=== PATIENT | male | born 1980 | race Caucasian/White ===

== ENCOUNTER 2017-07-09 16:56 | Observation (INO) ==
--- NOTE | 2017-07-09 17:24 | Emergency Department Note ---
Disposition Clinical Impression: Left knee pain Qualifiers: Chronicity: acute Qualified Code(s): M25.562 - Pain in left knee Septic arthritis of knee, left Qualifiers: Septic arthritis organism: due to unspecified organism Qualified Code(s): M00.9 - Pyogenic arthritis, unspecified Disposition: Still a Patient Condition: Good Referrals: Ministerio Donaldson MD [Primary Care Provider] - Forms: ED Satisfaction Letter Extremity Problem HPI - General Chief complaint: ED Extremity Problem,Nontraumatic Stated complaint: Left knee pain Time Seen by Provider: 07/09/17 17:09 Source: patient Limitations: no limitations Nursing Notes Reviewed: Yes Vital Signs Reviewed: Yes - History of Present Illness HPI Narrative: 36-year-old male history of hypertension diabetes and gout presents to the ED with atraumatic left knee pain. Symptoms started yesterday worse today. Increased redness and swelling as well as pain. Denies any pain anywhere else such as the back ahead where the feet. Denies any fevers. He denies any injury to the leg. Reports a history of gout that has affected his toes, knee, elbow. He has ever experienced pain like this before. Denies any recent surgery to the knee. He is expected to get arthroscopy to his right knee. He has not taken anything for the pain. Denies any recent alcohol use. At this time workup for septic knee including bloodwork, ESR and x-ray. Patient is afebrile but it appears uncomfortable in some distress. He is tachycardic 130. Pt Subjective Complaint: extremity pain, extremity swelling Pain Scale: 10 - Related Data Home Medications Medication Instructions Recorded Confirmed Acetaminophen [Tylenol] 325 mg PO Q6HR PRN 03/24/15 06/02/17 Atorvastatin [Lipitor] 10 mg PO HS 03/24/15 06/02/17 Ergocalciferol (VITAMIN D2) 50,000 unit PO MO 03/24/15 06/02/17 [Drisdol (50,000 Unit)] Previous Rx's Medication Instructions Recorded Insulin Glargine [Lantus] 8 unit SQ QAM 30 Days mls 01/31/16 Lisinopril [Zestril] 10 mg PO DAILY 30 Days 01/31/16 Ibuprofen [Motrin] 600 mg PO Q8HR PRN #20 tab 04/29/16 Clindamycin [Cleocin] 150 mg PO Q6HR #7 capsule 06/02/17 HYDROcodone/Acet 5/325 mg [Delight 1 tab PO Q6H PRN #14 tab 06/02/17 5-325 mg] Allergies Allergy/AdvReac Type Severity Reaction Status Date / Time aspirin Allergy See Verified 06/02/17 07:27 Comments ibuprofen Allergy due to Verified 05/23/17 13:16 kidneys naproxen [From Aleve] Allergy See Verified 05/23/17 13:16 Comments All systems ED: reviewed and negative except as stated. Review of Systems: As Per HPI Constitutional: Denies: fever, chills ENT ED: Denies: congestion Cardiovascular: Denies: chest pain, dyspnea on exertion Respiratory: Denies: cough, dyspnea Gastrointestinal: Denies: abdominal pain, nausea, vomiting Musculoskeletal: Reports: arthralgia. Denies: back pain, neck pain Neurological: Denies: headache Past Medical History - Past Medical History Attestation: Yes The following information was validated with the patient. Source: patient Medical history: Reports: diabetes, hypertension, osteoporosis, renal disease, other Surgical history: Reports: cholecystectomy, other Psychiatric history: Reports: ADHD - Social History Smoking Status: Never smoker Smokeless Tobacco Status: No Alcohol use: Reports: none Drug use: Reports: none Physical Exam - General Limitations: no limitations General appearance: alert, in no apparent distress - Head Head exam: atraumatic, normocephalic, normal inspection - Chest Chest inspection: Present: normal inspection, symmetric chest wall rise - Respiratory Respiratory exam: Present: normal lung sounds bilaterally - Cardiovascular Cardiovascular exam: Present: regular rate, normal rhythm, normal heart sounds - Abdominal Exam Abdominal exam: Present: soft, Non-Tender. Absent: tenderness, distention, guarding, rebound, rigidity - Expanded Lower Extremity Exam Hip/Pelvis exam: Present: normal inspection, full ROM, pelvis stable. Absent: external rotation, internal rotation, shortening Upper leg exam: Present: normal inspection, full ROM. Absent: tenderness, deformity Knee exam: Present: normal inspection, full ROM, tenderness (Left knee, is Osvaldo the lateral aspect), swelling (Left knee), erythema, effusion, pain with valgus , pain with varus Lower leg exam: Present: normal inspection, full ROM Ankle exam: Present: normal inspection, full ROM Foot/toe exam: Present: normal inspection, full ROM Neurovascular/Tendon exam: Present: normal capillary refill. Absent: pulse deficit, motor deficit, sensory deficit, tendon deficit - Neurological Exam Neurological exam: Present: alert, oriented X3 - Psychiatric Psychiatric exam: Present: normal affect, normal mood - Skin Skin exam: Present: warm, dry, intact, normal color. Absent: rash, cyanosis, diaphoresis Course Course Narrative: 36-year-old male history of atraumatic left knee swelling and pain. It is warm to the touch. Patients afebrile. Appears uncomfortable. Concern for septic knee. X-ray did not show fracture. Synovial fluid analysis pending. - Reevaluation(s) Reevaluation #1: Knee joint aspiration performed to the left knee with the lateral aspect introduction. Patient was cleaned with chloro prep. 1 mL of lidocaine for anesthesia. 21gauge needle introduced with 10 mL of yellow tint fluid. The sample was labeled and walked down to laboratory for analysis. A cell count, crystals, Gram stain and culture ordered. Time: 18:04 Reevaluation #2: At 1900 during shift change the fluid analysis is still pending. He has a leukocytosis with elevated ESR. Uric acid is elevated as well. Suspect this is likely more septic knee. He will be empirically treated with vancomycin and ceftriaxone. Blood cultures and lactate ordered. Patient's heart rate has improved with IV fluids. He will be signed up to nighttime physicians Dr. Wood and Dr. Vasquez pending fluid analysis and possible admission after speaking with orthopedic surgeon. Time: 19:00 Vital Signs Temperature 97.9 F 07/09/17 17:01 Pulse Rate 125 07/09/17 17:01 Respiratory Rate 18 07/09/17 17:01 Blood Pressure 132/84 07/09/17 17:01 O2 Sat by Pulse Oximetry 99 07/09/17 17:01 Temperature 97.9 F 07/09/17 17:01 Pulse Rate 102 07/09/17 18:30 Respiratory Rate 18 07/09/17 18:30 Blood Pressure 125/77 07/09/17 18:30 O2 Sat by Pulse Oximetry 97 07/09/17 18:30 Oxygen Delivery Oxygen Delivery Room Air Procedures - Joint Aspiration/Injection Joint Aspiration/Injection 1 Consent Obtained: verbal consent Time Out Performed: Yes Side of body: left Joint Aspirated: knee Ultrasound Guidance: No Skin Prep: Chlorhexidine Local Anesthetic: lidocaine 1% Amount of anesthesia used (mL): 1 Needle Size Used: 20G Fluid Obtained: turbid Total Fluid Obtained (mls): 10 Patient Tolerated Procedure: well Complications: none Extremity Problem, Nontraumati - MDM Narrative Medical decision making narrative: Patient was discussed with my attending physician who agrees with ED management and final disposition. They independently evaluated the patient. Please refer to their attestation to this encounter for additional information. This note was generated by [employer] voice recognition software and as a result grammatical or spelling errors may occur using this program. - Medical Records Medical records reviewed: Yes I reviewed the patient's medical records. - Lab Data Lab results reviewed: Yes I reviewed the patient's lab results. Result diagrams: 07/09/17 17:46 07/09/17 17:46 Lab Results 07/09/17 07/09/17 07/09/17 Range/Units 17:46 17:46 17:46 WBC 16.5 H (4.3-11.1) K/mcL RBC 5.08 (4.19-5.50) M/mcL Hgb 15.0 (12.9-16.9) g/dL Hct 42.9 (37.5-50.1) % MCV 84.4 (83.0-100.0) fL MCH 29.5 (28.0-33.3) pg MCHC 35.0 (31.6-35.5) g/dL RDW 12.8 (11.5-14.5) % Plt Count 230 (140-400) K/mcL MPV 11.1 (9.4-12.4) fL Immature Gran % 0.5 (0-4) % Seg Neutrophils % 80.3 % Lymphocytes % 10.2 % Monocytes % 8.6 % Eosinophils % 0.2 % Basophils % 0.2 % Neutrophils # 13.2 H (1.6-8.9) K/mcL Lymphocytes # 1.7 (0.6-4.6) K/mcL Monocytes # 1.4 H (0.0-1.3) K/mcL Eosinophils # 0.0 (0.0-0.6) K/mcL Basophils # 0.0 (0.0-0.2) K/mcL ESR 46 H (0-10) mm/hr Sodium 134 L (136-145) mEq/L Potassium 3.8 (3.5-5.1) mEq/L Chloride 101 (98-107) mEq/L Carbon Dioxide 23 (23-29) mEq/L BUN 9 (6-20) mg/dL Creatinine 0.87 (0.70-1.30) mg/dL Est GFR ( Amer) > 60 (> 60) Est GFR (Non-Af Amer) > 60 (> 60) BUN/Creatinine Ratio 10 (6-26) Glucose 229 H (70-105) mg/dL Calculated Osmolality 284 (280-300) Uric Acid 7.9 H (2.3-7.6) mg/dL Calcium 9.8 (8.6-10.3) mg/dL - Radiology Data Radiology results reviewed: Yes I reviewed the patient's radiology results. Knee X-Ray 07/09/17 17:23 IMPRESSION: Soft tissue swelling with moderate to large sized patellofemoral effusion. These findings are nonspecific. Infectious, inflammatory and posttraumatic causes are considered. Clinical correlation recommended. D/ / Chuy Guevara MD / Chuy Guevara MD Interpreting Provider: Chuy Guevara MD S.B.A.R. - S.B.A.RAlicia Situation: Demographics, MOA Background: Presenting Complaint, Relevant PMH, Meds, & Allergies Assessment: Vital Signs, Course and respsone to treatment, Exam Concerns, Patient/Family Expectation, Pertinant Lab Results, Outstanding Labs Recommendation: Barrier(s) to disposition, Recommendation based on pending studies, treatments, or consults S.B.A.RAlicia Report Given to: Dr. Wood and Christina SAliciaB.AGabriele Repor Time: 19:05
[2017-07-09] MEDS ORDERED: Acetaminophen 325 MG TABLET PO ONE (17:25)
--- NOTE | 2017-07-09 17:30 | Emergency Department Note ---
START Narrative - START START: I examined this patient and my medical decision-making was reviewed with the Resident Physician. I agree with the documented findings, disposition and treatment plan as described except to the extent set forth below. 36-year-old male presents emergency room for left knee pain and swelling. States this got more swollen over the past day or so. So she with redness. Increased swelling. Denies fevers. We will need to workup for a possible septic joint. Lab work, plain films, we will need to do a knee aspiration.
[2017-07-09] MEDS ORDERED: 0.9 % Sodium Chloride 1,000 ML IVC ONE (17:34)
[2017-07-09] MEDS ORDERED: Lidocaine 1% 20 ML MDV INFILT ONE (17:41)
[2017-07-09 17:58] LABS: Basophils % 0.2 %; Eosinophils % 0.2 %; Hematocrit 42.9 % (37.5-50.1); Immature Granulocytes % 0.5 % (0-4); Lymphocytes # 1.7 K/mcL (0.6-4.6); Lymphocytes % 10.2 %; Mean Corpuscular Hemoglobin 29.5 pg (28.0-33.3); Mean Corpuscular Volume 84.4 fL (83.0-100.0); Mean Platelet Volume 11.1 fL (9.4-12.4); Monocytes # 1.4 K/mcL (0.0-1.3); Monocytes % 8.6 %; Neutrophils # 13.2 K/mcL (1.6-8.9); Platelet Count 230 K/mcL (140-400); Red Blood Count 5.08 M/mcL (4.19-5.50); Red Cell Distribution Width 12.8 % (11.5-14.5); Segmented Neutrophils % 80.3 %
[2017-07-09 18:10] LABS: Source,Synovial Fluid LFT KNEE
[2017-07-09 18:15] LABS: BUN/Creatinine Ratio 10 (6-26); Blood Urea Nitrogen 9 mg/dL (6-20); Calcium 9.8 mg/dL (8.6-10.3); Carbon Dioxide 23 mEq/L (23-29); Chloride 101 mEq/L (98-107); Glucose 229 mg/dL (70-105); Osmolality,Calculated 284 (280-300); Potassium 3.8 mEq/L (3.5-5.1); Sodium 134 mEq/L (136-145); Uric Acid 7.9 mg/dL (2.3-7.6); eGFR For African Americans > 60 (> 60); eGFR For Non-African Americans > 60 (> 60)
[2017-07-09] MEDS ORDERED: Vancomycin 1,500 MG in D5% in Water 250 ML IVPB ONE (19:00)
--- NOTE | 2017-07-09 19:05 | Emergency Department Note ---
Disposition Clinical Impression: Left knee pain Qualifiers: Chronicity: acute Qualified Code(s): M25.562 - Pain in left knee Septic arthritis of knee, left Qualifiers: Septic arthritis organism: due to unspecified organism Qualified Code(s): M00.9 - Pyogenic arthritis, unspecified Disposition: Admitted As Inpatient Condition: Good Extremity Problem HPI - General Chief complaint: ED Extremity Problem,Nontraumatic Stated complaint: Left knee pain Time Seen by Provider: 07/09/17 17:09 Source: patient Limitations: no limitations - History of Present Illness Pain Scale: 9 - Related Data Home Medications Medication Instructions Recorded Confirmed Acetaminophen [Tylenol] 325 mg PO Q6HR PRN 03/24/15 06/02/17 Atorvastatin [Lipitor] 10 mg PO HS 03/24/15 06/02/17 Ergocalciferol (VITAMIN D2) 50,000 unit PO MO 03/24/15 06/02/17 [Drisdol (50,000 Unit)] Previous Rx's Medication Instructions Recorded Insulin Glargine [Lantus] 8 unit SQ QAM 30 Days mls 01/31/16 Lisinopril [Zestril] 10 mg PO DAILY 30 Days 01/31/16 Ibuprofen [Motrin] 600 mg PO Q8HR PRN #20 tab 04/29/16 Clindamycin [Cleocin] 150 mg PO Q6HR #7 capsule 06/02/17 HYDROcodone/Acet 5/325 mg [Chili 1 tab PO Q6H PRN #14 tab 06/02/17 5-325 mg] Allergies Allergy/AdvReac Type Severity Reaction Status Date / Time aspirin Allergy See Verified 06/02/17 07:27 Comments ibuprofen Allergy due to Verified 05/23/17 13:16 kidneys naproxen [From Aleve] Allergy See Verified 05/23/17 13:16 Comments Constitutional: Denies: fever, chills ENT ED: Denies: congestion Cardiovascular: Denies: chest pain, dyspnea on exertion Respiratory: Denies: cough, dyspnea Gastrointestinal: Denies: abdominal pain, nausea, vomiting Musculoskeletal: Reports: arthralgia. Denies: back pain, neck pain Neurological: Denies: headache Past Medical History - Past Medical History Medical history: Reports: diabetes, hypertension, osteoporosis, renal disease, other Surgical history: Reports: cholecystectomy, other Psychiatric history: Reports: ADHD - Social History Smoking Status: Never smoker Smokeless Tobacco Status: No Alcohol use: Reports: none Drug use: Reports: none Physical Exam - General Limitations: no limitations General appearance: alert, in no apparent distress Course Course Narrative: Patient signed out from dayshift team pending cultures and analysis of knee fluid aspirate. In brief he is a 36-year-old male with a history of diabetes and gout who presented due to left knee pain, redness and swelling for 1 day duration. Denies any trauma. Reports he has had gout in the past but this is nothing like his usual flare. He is not currently on medications for gout. No constitutional symptoms at home. Patient does have a warm swollen left knee here. X-ray demonstrates an effusion. Patient underwent aspiration of the joint prior to my arrival. He is noted to have a leukocytosis of 16.5. Slightly elevated ESR. Uric acid is just slightly elevated 0.3 higher than normal. We will wait analysis of his aspirate. Patient given vancomycin. - Reevaluation(s) Reevaluation #1: Discussed finding of knee fluid as well as orthopedic recommendations with the patient. He is agreeable with being admitted to the hospital. - Consultations Consultation #1: I spoke with the on-call orthopedic surgeon Dr. Krishnan. Discussed the patient's history exam and imaging labs and interventions today. He reports to admit to the hospitalist service and he will see the patient in the morning. Vital Signs Temperature 97.9 F 07/09/17 17:01 Pulse Rate 125 07/09/17 17:01 Respiratory Rate 18 07/09/17 17:01 Blood Pressure 132/84 07/09/17 17:01 O2 Sat by Pulse Oximetry 99 07/09/17 17:01 Temperature 97.9 F 07/09/17 17:01 Pulse Rate 93 07/09/17 21:30 Respiratory Rate 18 07/09/17 18:30 Blood Pressure 115/73 07/09/17 21:30 O2 Sat by Pulse Oximetry 94 07/09/17 21:30 Oxygen Delivery Oxygen Delivery Room Air Extremity Problem, Nontraumati - MDM Narrative Medical decision making narrative: 36-year-old male presents to the ER due to redness and swelling of his left knee for 1 day in nature. Atraumatic. History of diabetes. Noted to be tachycardic upon arrival. He has a white count of 16.5. Knee aspiration performed showing greater than 20,000 nucleated cells. Gram stain does not show any bacteria. Case discussed with the on-call orthopedic surgeon. Patient will be admitted to the hospitalist service with orthopedic consultation. Patient received dose of vancomycin while here. - Lab Data Lab results reviewed: Yes I reviewed the patient's lab results. Result diagrams: 07/09/17 17:46 07/09/17 17:46 Lab Results 07/09/17 07/09/17 07/09/17 Range/Units 17:46 17:46 17:46 WBC 16.5 H (4.3-11.1) K/mcL RBC 5.08 (4.19-5.50) M/mcL Hgb 15.0 (12.9-16.9) g/dL Hct 42.9 (37.5-50.1) % MCV 84.4 (83.0-100.0) fL MCH 29.5 (28.0-33.3) pg MCHC 35.0 (31.6-35.5) g/dL RDW 12.8 (11.5-14.5) % Plt Count 230 (140-400) K/mcL MPV 11.1 (9.4-12.4) fL Immature Gran % 0.5 (0-4) % Seg Neutrophils % 80.3 % Lymphocytes % 10.2 % Monocytes % 8.6 % Eosinophils % 0.2 % Basophils % 0.2 % Neutrophils # 13.2 H (1.6-8.9) K/mcL Lymphocytes # 1.7 (0.6-4.6) K/mcL Monocytes # 1.4 H (0.0-1.3) K/mcL Eosinophils # 0.0 (0.0-0.6) K/mcL Basophils # 0.0 (0.0-0.2) K/mcL ESR 46 H (0-10) mm/hr Sodium 134 L (136-145) mEq/L Potassium 3.8 (3.5-5.1) mEq/L Chloride 101 (98-107) mEq/L Carbon Dioxide 23 (23-29) mEq/L BUN 9 (6-20) mg/dL Creatinine 0.87 (0.70-1.30) mg/dL Est GFR ( Amer) > 60 (> 60) Est GFR (Non-Af Amer) > 60 (> 60) BUN/Creatinine Ratio 10 (6-26) Glucose 229 H (70-105) mg/dL Calculated Osmolality 284 (280-300) Lactic Acid (0.5-2.2) mmol/L Uric Acid 7.9 H (2.3-7.6) mg/dL Calcium 9.8 (8.6-10.3) mg/dL Fluid Crystals (None Seen) Synovial Source Synovial Color (Straw) Synovial Appearance (Clear-Hazy) Synovial Volume mL Synovial RBC (0.000 - 0.002) M/mcl Synovial Tot Nuc Cell (0-200) TNC/mcL Synovial Band Neuts Synovial Basophils Synovial Eosinophils Synovial Seg Neuts % % Synovial Lymphocytes % % Synovial Monocytes % % Synovial Other Cells % 07/09/17 07/09/17 07/09/17 Range/Units 18:00 18:09 19:04 WBC (4.3-11.1) K/mcL RBC (4.19-5.50) M/mcL Hgb (12.9-16.9) g/dL Hct (37.5-50.1) % MCV (83.0-100.0) fL MCH (28.0-33.3) pg MCHC (31.6-35.5) g/dL RDW (11.5-14.5) % Plt Count (140-400) K/mcL MPV (9.4-12.4) fL Immature Gran % (0-4) % Seg Neutrophils % % Lymphocytes % % Monocytes % % Eosinophils % % Basophils % % Neutrophils # (1.6-8.9) K/mcL Lymphocytes # (0.6-4.6) K/mcL Monocytes # (0.0-1.3) K/mcL Eosinophils # (0.0-0.6) K/mcL Basophils # (0.0-0.2) K/mcL ESR (0-10) mm/hr Sodium (136-145) mEq/L Potassium (3.5-5.1) mEq/L Chloride (98-107) mEq/L Carbon Dioxide (23-29) mEq/L BUN (6-20) mg/dL Creatinine (0.70-1.30) mg/dL Est GFR ( Amer) (> 60) Est GFR (Non-Af Amer) (> 60) BUN/Creatinine Ratio (6-26) Glucose (70-105) mg/dL Calculated Osmolality (280-300) Lactic Acid 1.3 (0.5-2.2) mmol/L Uric Acid (2.3-7.6) mg/dL Calcium (8.6-10.3) mg/dL Fluid Crystals None Seen (None Seen) Synovial Source LFT KNEE Synovial Color Isha (Straw) Synovial Appearance Cloudy A (Clear-Hazy) Synovial Volume 11.0 mL Synovial RBC 0.008 H (0.000 - 0.002) M/mcl Synovial Tot Nuc Cell 40789 H (0-200) TNC/mcL Synovial Band Neuts Test Not Performed Synovial Basophils Test Not Performed Synovial Eosinophils Test Not Performed Synovial Seg Neuts % 96.0 % Synovial Lymphocytes % 1.0 % Synovial Monocytes % 3.0 % Synovial Other Cells % Test Not Performed - Radiology Data Radiology results reviewed: Yes I reviewed the patient's radiology results. Knee X-Ray 07/09/17 17:23 IMPRESSION: Soft tissue swelling with moderate to large sized patellofemoral effusion. These findings are nonspecific. Infectious, inflammatory and posttraumatic causes are considered. Clinical correlation recommended. D/ / Chuy Guevara MD / Chuy Guevara MD Interpreting Provider: Chuy Guevara MD S.Karen.Talita - SamuelAGabriele Situation: Demographics, MOA Background: Presenting Complaint, Relevant PMH, Meds, & Allergies Assessment: Course and respsone to treatment, Exam Concerns, Patient/Family Expectation, Pertinant Lab Results Recommendation: Barrier(s) to disposition, Recommendation based on pending studies, treatments, or consults S.B.A.R. Report Given to: Dr. Will BakerAGabriele Repor Time: 21:14 Attestation Statement - Attestation Attestation: I, Leon Vasquez MD, personally evaluated this patient and discussed their management with the resident physician. I reviewed the resident's note and agree with the documented findings, medical decision making, and plan of care. This patient was signed out at shift change from Dr. Hendrickson and Dr. Lombardo. Please refer to their notes for complete details of the history and physical examination. Patient presented with a septic left knee which started yesterday. At shift change patient is awaiting results of the synovial fluid analysis and then consultation with orthopedics and admission. IV antibiotics have been initiated. On examination patient is a well-developed well-nourished male in no acute distress. He is alert and oriented 3. There is no cyanosis or diaphoresis. Breath sounds are clear and equal bilaterally. Heart regular rate and rhythm. Left knee is swollen and red and hot to touch. Range of motion is limited and he is unable to fully extend the knee with limited flexion. Labs reviewed. Dr. Wood discussed with the orthopedist deboning team leader, Dr. Krishnan, and he recommended IV antibiotics and admission by the hospitalist and he will consult on the patient.
[2017-07-09 20:20] LABS: Appearance,Synovial Fluid Cloudy (Clear-Hazy); Color,Synovial Fluid Amber (Straw)
[2017-07-09] MEDS ORDERED: *HR* HYDROcodone/Acet 5/325 mg TABLET PO PRN (21:57)
[2017-07-09] MEDS ORDERED: Naloxone 0.4 MG/ML INJ IVP PRN (21:57)
[2017-07-09] MEDS ORDERED: Acetaminophen 325 MG TABLET PO PRN (21:57)
[2017-07-09] MEDS ORDERED: D5% in Water 1,000 ML IVC PRN (21:59)
[2017-07-09] MEDS ORDERED: Dextrose Gel 15 GM PO PRN ×2 (21:59)
[2017-07-09] MEDS ORDERED: *HR* Dextrose 50 % in Water (Syg) 50 ML SYRINGE IVP PRN (21:59)
[2017-07-09] MEDS ORDERED: Vancomycin 1,750 MG in D5% in Water 250 ML IVPB SCH (22:00)
--- NOTE | 2017-07-09 22:06 | Internal Med History&Physical ---
Date of Encounter: 07/09/17 Time of Encounter: 21:00 Assessment and Plan (1) Sepsis Current visit: Yes Status: Acute Patient did meet sepsis criteria with leukocytosis and tachycardia. - Early stage goal directed fluid resuscitation started up from ER. We will continue IV fluid. - Initial lactate level 1.3 - Vancomycin IV started. - We will follow-up blood culture and synovial fluid culture results. Patient is at high risk because he is on vancomycin, need close monitoring Qualifiers: Sepsis type: methicillin resistant Staphylococcus aureus Qualified Code(s) : A41.02 - Sepsis due to Methicillin resistant Staphylococcus aureus (2) Diabetes Current visit: No Status: Chronic Place patient on basal and a sliding scale insulin coverage. Closely monitor glucose level. 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 Suspect septic arthritis but WBC < 50,000. Waiting for culture results. Orthopedic consult informed and the recommend vancomycin. Will continue iv vancomycin treatment. Qualifiers: Septic arthritis organism: staphylococcal Qualified Code(s): M00.062 - Staphylococcal arthritis, left knee Internal Medicine - H&P: HPI Chief complaint: Left knee pain Admitted From: Home Plans for Post Hospital Care: Home History of present illness: Mr. Hassan is a 36 year old male with history of diabetes to present to ER for left knee pain and swelling. Patient said symptoms started from yesterday morning. Patient denies knee injury. Patient has no fever. He has mild nausea but no vomiting. Patient denies diarrhea or urination symptoms. Patient said the pain makes him difficulty walking. Patient denies history of gout. In the emergency room, arthrocentesis has been done. Fluid cell count shows WBC 40501. Orthopedic doctor was counseled by ER, recommend IV vancomycin and orthopedic will see pt in the a.m. Past Med Surg Social Fam HX - Past Medical History Medical history: diabetes, hypertension, osteoporosis, renal disease, other Psychiatric history: ADHD - Past Surgical History Surgical History: cholecystectomy, other - Social History Smoking Status: Never smoker Smokeless Tobacco Status: No Alcohol use: none Drug use: none - Family History Mother Living Status: Still Living Hx Family Respiratory Disorders: Yes (left partial lobectomy) Hx Family Endocrine Disorder: Yes (dm type 2) Internal Medicine - H&P: Meds Acetaminophen [Tylenol] 325 mg PO Q6HR PRN 03/24/15 [History] Atorvastatin [Lipitor] 10 mg PO HS 03/24/15 [History] Ergocalciferol (VITAMIN D2) [Drisdol (50,000 Unit)] 50,000 unit PO MO 03/24/15 [ History] Insulin Glargine [Lantus] 8 unit SQ QAM 30 Days mls 01/31/16 [Rx] Lisinopril [Zestril] 10 mg PO DAILY 30 Days 01/31/16 [Rx] Ibuprofen [Motrin] 600 mg PO Q8HR PRN #20 tab 04/29/16 [Rx] Clindamycin [Cleocin] 150 mg PO Q6HR #7 capsule 06/02/17 [Rx] HYDROcodone/Acet 5/325 mg [[place] 5-325 mg] 1 tab PO Q6H PRN #14 tab 06/02/17 [Rx ] 3 Allergy/AdvReac Type Severity Reaction Status Date / Time aspirin Allergy See Verified 06/02/17 07:27 Comments ibuprofen Allergy due to Verified 05/23/17 13:16 kidneys naproxen [From Aleve] Allergy See Verified 05/23/17 13:16 Comments All Systems PM: A 10-system review of systems was performed and is negative for pertinent findings except as documented above in the HPI. - Constitutional Vitals: Temp Pulse Resp BP Pulse Ox 97.9 F 93 18 115/73 94 07/09/17 17:01 07/09/17 21:30 07/09/17 18:30 07/09/17 21:30 07/09/17 21:30 General appearance: Present: A&O X 3, no acute distress, answers questions appropriately - Head Head exam: Present: atraumatic, normocephalic - Eye Eye exam: Present: PERRL, conjuntiva pink, sclera anicteric Pupils: Present: PERRL - Neck Neck exam general surgery: Present: supple, trachea midline. Absent: lymphadenopathy - Respiratory Respiratory exam: Present: CTAB. Absent: accessory muscle use, rales, rhonchi, wheezes - Cardiovascular Cardiovascular exam: Present: RRR, +S1, +S2. Absent: diastolic murmur, gallop, rubs, systolic murmur - GI/Abdominal GI/Abdominal exam: Present: normal bowel sounds, soft, no peritoneal signs. Absent: distended, tenderness - Extremities Exam Extremities exam: Present: warm, radial pulses palpable and symmetrical. Absent : calf tenderness, cyanotic, pedal edema Additional comments: Left knee tenderness, warmth with skin redness. ROM limited due to pain. - Neurological Exam Neurological exam: Present: CN II-XII intact, oriented X3, no focal deficits. Absent: pronater drift, facial droop, speech deficit - Skin Skin exam: Present: dry, intact Internal Med - H&P Results - Labs CBC & Chem 7: 07/09/17 17:46 07/09/17 17:46
[2017-07-09] MEDS: 0.9 % Sodium Chloride 1,000 ML IVC SCH (22:43)
[2017-07-10 01:25] LABS: Basophils % 0.4 %; Eosinophils # 0.2 K/mcL (0.0-0.6); Eosinophils % 1.5 %; Immature Granulocytes % 0.4 % (0-4); Lymphocytes # 2.5 K/mcL (0.6-4.6); Lymphocytes % 22.9 %; Mean Corpuscular HGB Conc 34.3 g/dL (31.6-35.5); Mean Corpuscular Hemoglobin 29.1 pg (28.0-33.3); Mean Corpuscular Volume 84.7 fL (83.0-100.0); Mean Platelet Volume 10.9 fL (9.4-12.4); Monocytes # 1.4 K/mcL (0.0-1.3); Neutrophils # 6.9 K/mcL (1.6-8.9); Platelet Count 190 K/mcL (140-400); Red Blood Count 4.37 M/mcL (4.19-5.50); Red Cell Distribution Width 12.8 % (11.5-14.5); Segmented Neutrophils % 61.8 %
[2017-07-10 01:42] LABS: BUN/Creatinine Ratio 9 (6-26); Blood Urea Nitrogen 8 mg/dL (6-20); Calcium 8.8 mg/dL (8.6-10.3); Carbon Dioxide 26 mEq/L (23-29); Chloride 103 mEq/L (98-107); Glucose 213 mg/dL (70-105); Osmolality,Calculated 287 (280-300); Potassium 3.6 mEq/L (3.5-5.1); Sodium 136 mEq/L (136-145); eGFR For African Americans > 60 (> 60); eGFR For Non-African Americans > 60 (> 60)
[2017-07-10 02:19] LABS: Hemoglobin 12.7 g/dL (12.9-16.9)
[2017-07-10] MEDS ORDERED: Insulin DETEMIR 100 UNIT/ML X5UNITS SQ SCH (09:00)
[2017-07-10] MEDS: Insulin LISPRO 300 UNITS/3 ML VIAL SQ SCH ×4 (10:17→21:04)
[2017-07-10] MEDS: 0.9 % Sodium Chloride 1,000 ML IVC SCH (10:20)
--- NOTE | 2017-07-10 10:55 | Internal Med Progress Note ---
Date of Encounter: 07/10/17 Time of Encounter: 08:00 - Assessment and plan (1) Left knee pain Current Visit: Yes Status: Acute Assessment and plan: Orthopedic is following. From what I understand as they believe that this is mostly gout. I will start Indocin. Continue with IV vancomycin for now. Follow up on the fluid culture from the knee. Patient has had no fever. Continue with IV fluids. Continue with pain control. Qualifiers: Chronicity: acute Qualified Code(s): M25.562 - Pain in left knee (2) Diabetes Current Visit: No Status: Acute Assessment and plan: Continue with his home Levemir 8 units daily. Continue insulin sliding scale. Continue with Accu-Cheks. Qualifiers: Diabetes mellitus type: type 2 Diabetes mellitus complication status: without complication Diabetes mellitus vermin exterminator insulin use: with chcf use Qualified Code(s): E11.9 - Type 2 diabetes mellitus without complications ; Z79.4 - local intermodal truck driver (current) use of insulin; Z79.4 - local intermodal truck driver (current) use of insulin; Z79.4 - custodial (current) use of insulin; Z79.4 - custodial ( current) use of insulin (3) HTN (hypertension) Current Visit: No Status: Chronic Assessment and plan: Hold lisinopril. Blood pressures on the lower side. Continue with IV fluids. Qualifiers: Hypertension type: essential hypertension Qualified Code(s): I10 - Essential (primary) hypertension (4) DVT prophylaxis Current Visit: No Status: Acute Assessment and plan: Heparin subcutaneous. - Subjective Interval history: Patient was seen and examined. He was admitted with acute left knee pain. He has signs have knee effusion which was tapped. Orthopedics saw the patient. They believe this is gout more so than septic knee. He has been afebrile. - Constitutional Vitals: Temp Pulse Resp BP Pulse Ox 98.4 F 73 17 108/73 98 07/10/17 03:46 07/10/17 03:46 07/10/17 03:46 07/10/17 03:46 07/10/17 10:28 General appearance: Present: A&O X 3, no acute distress, answers questions appropriately Exam: GEN: NAD CVS: RRR. S1, S2, No m/r/g RESP: CTAB ABD: Soft, NT, ND, +BS EXT: Left knee swelling is noted. Some surrounding erythema. Tender to palpation on the lateral side of the left knee. 2+ DP, No rashes NEURO: Nonfocal Internal Medicine: Result - Labs CBC & Chem 7: 07/10/17 01:10 07/10/17 01:10 Labs: Short CBC 07/10/17 Range/Units 01:10 WBC 11.1 (4.3-11.1) K/mcL Hgb 12.7 L D (12.9-16.9) g/dL Hct 37.0 L (37.5-50.1) % Plt Count 190 (140-400) K/mcL Neutrophils # 6.9 (1.6-8.9) K/mcL BMP 07/10/17 01:10 Sodium 136 Potassium 3.6 Chloride 103 Carbon Dioxide 26 BUN 8 Creatinine 0.88 Glucose 213 H Calcium 8.8 Consult Discharge Plan - Plan Referrals: Ministerio Donaldson MD [Primary Care Provider] -
--- NOTE | 2017-07-10 11:06 | Orthopedic Consult Note ---
Date of Encounter: 07/10/17 Time of Encounter: 07:00 History of Present Illness HPI: Mr. Hassan is a 36 year old male with a history of left knee pain and swelling. Patient s/p right knee arthroscopy last month, doing well. Patient seen in ER last night and admitted. Knee aspiration + WBC, - Bacteria. Exam Left Knee 2+ effusion - erythema pain free motion 20 to 90 degrees. Patient with history of gout, recommend start medical management of gout, low suspicion for intra-articular infection. If patient shows improvement ok to discharge we will see him tuesday or tuesday when cultures should be resulted. Past Med Surg Social Fam HX - Past Medical History Medical history: diabetes, hypertension, osteoporosis, renal disease, other Psychiatric history: ADHD - Past Surgical History Surgical History: cholecystectomy, other - Social History Smoking Status: Never smoker Smokeless Tobacco Status: No Alcohol use: none Drug use: none - Family History Mother Adopted: [place]: Gillian Hassan Age: 55 Family Member Ethnicity: Non- Living Status: Still Living Hx Family Respiratory Disorders: Yes (left partial lobectomy) Hx Family Endocrine Disorder: Yes (dm type 2) Father Adopted: [place]: Aiden Hassan Age: 63 Family Member Ethnicity: Non- Living Status: Still Living Hx Family Endocrine Disorder: Yes (Diabetes) Medications and Allergies Acetaminophen [Tylenol] 325 mg PO Q6HR PRN 03/24/15 [History] Atorvastatin [Lipitor] 10 mg PO HS 03/24/15 [History] Ergocalciferol (VITAMIN D2) [Drisdol (50,000 Unit)] 50,000 unit PO MO 03/24/15 [ History] Insulin Glargine [Lantus] 8 unit SQ QAM 30 Days mls 01/31/16 [Rx] Lisinopril [Zestril] 10 mg PO DAILY 30 Days 01/31/16 [Rx] Ibuprofen [Motrin] 600 mg PO Q8HR PRN #20 tab 04/29/16 [Rx] Clindamycin [Cleocin] 150 mg PO Q6HR #7 capsule 06/02/17 [Rx] HYDROcodone/Acet 5/325 mg [[place] 5-325 mg] 1 tab PO Q6H PRN #14 tab 06/02/17 [Rx ] 3 Allergy/AdvReac Type Severity Reaction Status Date / Time aspirin Allergy See Verified 06/02/17 07:27 Comments ibuprofen Allergy due to Verified 05/23/17 13:16 kidneys naproxen [From Aleve] Allergy See Verified 05/23/17 13:16 Comments All Systems Reviewed: A 10-system review of systems was performed and is negative for pertinent findings except as documented above in the HPI. Physical Exam - Constitutional Vitals: Temp Pulse Resp BP Pulse Ox 98.4 F 73 17 108/73 98 07/10/17 03:46 07/10/17 03:46 07/10/17 03:46 07/10/17 03:46 07/10/17 10:28 Results - Labs Result Diagrams: 07/10/17 01:10 07/10/17 01:10 Labs: Abnormal lab results Hgb 12.7 g/dL (12.9-16.9) L D 07/10/17 01:10 Hct 37.0 % (37.5-50.1) L 07/10/17 01:10 Monocytes # 1.4 K/mcL (0.0-1.3) H 07/10/17 01:10 ESR 46 mm/hr (0-10) H 07/09/17 17:46 Glucose 213 mg/dL (70-105) H 07/10/17 01:10 POC Glucose 186 (58-89) H 07/10/17 07:45 Uric Acid 7.9 mg/dL (2.3-7.6) H 07/09/17 17:46 Synovial Appearance Cloudy (Clear-Hazy) A 07/09/17 18:09 Synovial RBC 0.008 M/mcl (0.000-0.002) H 07/09/17 18:09 Synovial Tot Nuc Cell 71053 TNC/mcL (0-200) H 07/09/17 18:09 H & H 07/10/17 Range/Units 01:10 Hgb 12.7 L D (12.9-16.9) g/dL Hct 37.0 L (37.5-50.1) % All other labs normal. Consult Discharge Plan - Plan Referrals: Ministerio Donaldson MD [Primary Care Provider] -
[2017-07-10] MEDS: Indomethacin 25 MG CAPSULE PO SCH ×2 (12:39→17:08)
[2017-07-10] MEDS: *HR* Heparin 5,000 UNIT/ML VIAL SQ SCH ×2 (15:12→17:08)
[2017-07-10] MEDS: Vancomycin 1,500 MG in D5% in Water 250 ML IVPB SCH ×2 (15:12→17:36)
[2017-07-11 01:28] LABS: Basophils # 0.1 K/mcL (0.0-0.2); Basophils % 0.6 %; Eosinophils # 0.2 K/mcL (0.0-0.6); Hematocrit 36.9 % (37.5-50.1); Hemoglobin 12.6 g/dL (12.9-16.9); Immature Granulocytes % 0.6 % (0-4); Lymphocytes % 24.5 %; Mean Corpuscular HGB Conc 34.1 g/dL (31.6-35.5); Mean Corpuscular Hemoglobin 28.9 pg (28.0-33.3); Mean Corpuscular Volume 84.6 fL (83.0-100.0); Mean Platelet Volume 11.2 fL (9.4-12.4); Monocytes # 0.9 K/mcL (0.0-1.3); Monocytes % 11.3 %; Neutrophils # 5.1 K/mcL (1.6-8.9); Platelet Count 178 K/mcL (140-400); Red Blood Count 4.36 M/mcL (4.19-5.50); Red Cell Distribution Width 12.7 % (11.5-14.5)
--- NOTE | 2017-07-11 01:29 | Orthopedics Progress Note ---
Date of Encounter: 07/11/17 Time of Encounter: 01:27 Subjective Interval history: Patient seen this morning less swelling left knee moving better. No cultures resulted yet. Also stable at this point the outcome of cultures. Objective Vital signs: Vital Signs Temp Pulse Resp BP Pulse Ox 07/11/17 00:35 97.9 F 60 16 99/60 98 07/10/17 19:20 99.0 F 63 16 117/67 97 07/10/17 15:22 98.3 F 71 16 109/73 96 07/10/17 11:56 97.7 F 76 18 112/69 97 07/10/17 10:28 98 07/10/17 03:46 98.4 F 73 17 108/73 98 Intake and Output 07/10/17 07/10/17 07/11/17 15:59 23:59 07:59 Intake Total 1600 / 1600 1430 / 1430 Output Total 1100 / 1100 0 / 0 525 / 525 Balance 500 / 500 1430 / 1430 -525 / -525 Intake: IV Fluids 1000 / 1000 250 / 250 0.9 % Sodium Chloride 1,000 ML 1000 / 1000 @ 120 mls/hr IVC .Q8H20M QIANA Rx #:[id number] Vancocin 1,500 MG In Dextrose 5 250 / 250 % 250 ML @ 166.67 mls/hr IVPB Q12H QIANA Rx#:[id number] Oral 600 / 600 1180 / 1180 Output: Urine 1100 / 1100 0 / 0 525 / 525 Other: Meal Lunch Dinner Percent of Meal Consumed 100% 100% Blood Glucose* 242 239 - Labs CBC & BMP: 07/10/17 01:10 07/10/17 01:10 Labs: Abnormal lab results Hgb 12.7 g/dL (12.9-16.9) L D 07/10/17 01:10 Hct 37.0 % (37.5-50.1) L 07/10/17 01:10 Monocytes # 1.4 K/mcL (0.0-1.3) H 07/10/17 01:10 ESR 46 mm/hr (0-10) H 07/09/17 17:46 Glucose 213 mg/dL (70-105) H 07/10/17 01:10 POC Glucose 239 (58-89) H 07/10/17 20:17 Uric Acid 7.9 mg/dL (2.3-7.6) H 07/09/17 17:46 Synovial Appearance Cloudy (Clear-Hazy) A 07/09/17 18:09 Synovial RBC 0.008 M/mcl (0.000-0.002) H 07/09/17 18:09 Synovial Tot Nuc Cell 16107 TNC/mcL (0-200) H 07/09/17 18:09 Consult Discharge Plan - Plan Referrals: Ministerio Donaldson MD [Primary Care Provider] -
[2017-07-11 01:58] LABS: BUN/Creatinine Ratio 14 (6-26); Blood Urea Nitrogen 13 mg/dL (6-20); Calcium 8.9 mg/dL (8.6-10.3); Carbon Dioxide 25 mEq/L (23-29); Chloride 105 mEq/L (98-107); Glucose 226 mg/dL (70-105); Osmolality,Calculated 287 (280-300); Sodium 135 mEq/L (136-145); eGFR For African Americans > 60 (> 60); eGFR For Non-African Americans > 60 (> 60)
[2017-07-11] MEDS: Vancomycin 1,500 MG in D5% in Water 250 ML IVPB SCH ×2 (06:48→18:23)
[2017-07-11] MEDS: *HR* Heparin 5,000 UNIT/ML VIAL SQ SCH ×2 (06:49→18:23)
[2017-07-11] MEDS: Indomethacin 25 MG CAPSULE PO SCH ×3 (07:44→16:28)
[2017-07-11] MEDS: Insulin LISPRO 300 UNITS/3 ML VIAL SQ SCH ×4 (07:44→21:17)
[2017-07-11] MEDS: Insulin DETEMIR 100 UNIT/ML X5UNITS SQ SCH (08:32)
--- NOTE | 2017-07-11 09:26 | Internal Med Progress Note ---
Date of Encounter: 07/11/17 Time of Encounter: 07:40 - Assessment and plan (1) Left knee pain Current Visit: Yes Status: Acute Assessment and plan: Orthopedic is following. Continue with Indocin. Continue with IV vancomycin for now. Follow up on the fluid culture from the knee. Patient has had no fever. Continue with IV fluids. Continue with pain control. He does not feel comfortable being discharged today and feels he benefits from another day in the hospital. We will keep him here today and we will ask PT to see him tomorrow morning. Possible discharge tomorrow. Qualifiers: Chronicity: acute Qualified Code(s): M25.562 - Pain in left knee (2) Diabetes Current Visit: No Status: Acute Assessment and plan: Increase Levemir to 15 units from 8 units daily. Continue insulin sliding scale. Continue with Accu-Cheks. 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 Blood pressure is again on the lower side. Continue with IV fluids. Qualifiers: Hypertension type: essential hypertension Qualified Code(s): I10 - Essential (primary) hypertension (4) DVT prophylaxis Current Visit: No Status: Acute Assessment and plan: Heparin subcutaneous. - Subjective Interval history: Patient was seen and examined. No acute events. He says his pain is improved. He is able to bend his knee more than he did yesterday. He has been afebrile. - Constitutional Vitals: Temp Pulse Resp BP Pulse Ox 97.9 F 68 16 107/76 99 07/11/17 06:34 07/11/17 06:34 07/11/17 06:34 07/11/17 06:34 07/11/17 06:34 General appearance: Present: A&O X 3, no acute distress, answers questions appropriately Exam: GEN: NAD CVS: RRR. S1, S2, No m/r/g RESP: CTAB ABD: Soft, NT, ND, +BS EXT: Left knee swelling is noted. Some surrounding erythema. He has some more range of motion compared to yesterday. He is able to flex the knee to about 45 degrees. Tender to palpation on the lateral side of the left knee. 2+ DP, No rashes NEURO: Nonfocal Internal Medicine: Result - Labs CBC & Chem 7: 07/11/17 01:04 07/11/17 01:04 Labs: Short CBC 07/11/17 Range/Units 01:04 WBC 8.3 (4.3-11.1) K/mcL Hgb 12.6 L (12.9-16.9) g/dL Hct 36.9 L (37.5-50.1) % Plt Count 178 (140-400) K/mcL Neutrophils # 5.1 (1.6-8.9) K/mcL BMP 07/11/17 01:04 Sodium 135 L Potassium 4.0 Chloride 105 Carbon Dioxide 25 BUN 13 Creatinine 0.92 Glucose 226 H Calcium 8.9 Consult Discharge Plan - Plan Referrals: Ministerio Donaldson MD [Primary Care Provider] -
[2017-07-12 05:54] LABS: BUN/Creatinine Ratio 14 (6-26); Blood Urea Nitrogen 10 mg/dL (6-20); Calcium 8.8 mg/dL (8.6-10.3); Carbon Dioxide 25 mEq/L (23-29); Chloride 105 mEq/L (98-107); Glucose 217 mg/dL (70-105); Osmolality,Calculated 288 (280-300); Potassium 3.8 mEq/L (3.5-5.1); Sodium 136 mEq/L (136-145); eGFR For African Americans > 60 (> 60); eGFR For Non-African Americans > 60 (> 60)
[2017-07-12] MEDS: *HR* Heparin 5,000 UNIT/ML VIAL SQ SCH (06:10)
[2017-07-12] MEDS ORDERED: Vancomycin 1,250 MG in D5% in Water 250 ML IVPB SCH (07:00)
--- NOTE | 2017-07-12 07:26 | Discharge Summary ---
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 of insulin; Z79.4 - MCC (current) use of insulin; Z79.4 - MCC (current) use of insulin; Z79.4 - oil heaterman ( current) use of insulin (3) HTN (hypertension) Priority: Secondary Status: Chronic Qualifiers: Hypertension type: essential hypertension Qualified Code(s): I10 - Essential (primary) hypertension - Discharge Medications Prescriptions: Indomethacin [Indocin] 50 mg PO TAPER #12 capsule Home Medications: Acetaminophen [Tylenol] 325 mg PO Q6HR PRN 03/24/15 [History] Atorvastatin [Lipitor] 10 mg PO HS 03/24/15 [History] Ergocalciferol (VITAMIN D2) [Drisdol (50,000 Unit)] 50,000 unit PO MO 03/24/15 [ History] Insulin Glargine [Lantus] 8 unit SQ QAM 30 Days mls 01/31/16 [Rx] Lisinopril [Zestril] 10 mg PO DAILY 30 Days 01/31/16 [Rx] Ibuprofen [Motrin] 600 mg PO Q8HR PRN #20 tab 04/29/16 [Rx] HYDROcodone/Acet 5/325 mg [[place] 5-325 mg] 1 tab PO Q6H PRN #14 tab 06/02/17 [Rx ] Sitagliptin Phosphate [Januvia] 50 mg PO DAILY 07/10/17 [History] Indomethacin [Indocin] 50 mg PO TAPER #12 capsule 07/12/17 [Rx] Allergies/Adverse Reactions: 3 Allergy/AdvReac Type Severity Reaction Status Date / Time aspirin Allergy See Verified 06/02/17 07:27 Comments ibuprofen Allergy due to Verified 05/23/17 13:16 kidneys naproxen [From Aleve] Allergy See Verified 05/23/17 13:16 Comments Date of admission: 12/23/17 21:28 Primary care physician: Ministerio Donaldson MD Consults: 07/11/17 09:26 Consult to Physical Therapy [CONS] Routine Comment: Evaluate, develop and implement POC Reason for Consult: PT eval - Patient Status Disposition: Home, Self-Care Condition: Fair Overall status at discharge: patient is progressing back to baseline - Discharge Instructions Follow Up With: Ministerio Donaldson MD [Primary Care Provider] - - Diet and Activity Activity: resume usual activities as tolerated Diet: diabetic diet Hospital course: Mr. Hassan is a 36 year old male with history of diabetes and gout who presented to ER for left knee pain and swelling. In the emergency room, arthrocentesis has been done. Fluid cell count shows WBC 89992. Orthopedic counseled and saw the patient in consultation with the hospitalist. The patient was admitted. Subutex thought that he has gout. The recommended treatment for gout. We did put the patient on IV vancomycin as he had a white count was tachycardia there was concern for septic knee. Orthopedics did not think so. They Recommended treatment for gout as I mentioned and discharging the patient on Indocin. He did receive Indocin while he was in the hospital for a day. He was able to have complete range of motion in his knees on day of discharge. He will follow-up with his primary care physician. I did not discharge the patient on any antibiotics. He received 3 days' worth of vancomycin while hospitalized. - Time Spent with Patient Total time spent providing and/or coordinating discharge services: Greater than 30 minutes - Constitutional Vitals: Temp Pulse Resp BP Pulse Ox 98.0 F 70 18 143/88 97 07/12/17 06:20 07/12/17 06:20 07/12/17 06:20 07/12/17 06:20 07/12/17 06:20 General appearance: Present: A&O X 3, no acute distress, answers questions appropriately Exam: GEN: NAD CVS: RRR. S1, S2, No m/r/g RESP: CTAB ABD: Soft, NT, ND, +BS EXT: Left knee swelling is much improved. very miniaml swelling. Able to bend knee fully and able to walk with no issues. 2+ DP, No rashes NEURO: Nonfocal
[2017-07-12] MEDS: Indomethacin 25 MG CAPSULE PO SCH ×2 (07:53→13:10)
[2017-07-12] MEDS: Insulin LISPRO 300 UNITS/3 ML VIAL SQ SCH ×2 (07:54→11:45)
[2017-07-12] MEDS: Insulin DETEMIR 100 UNIT/ML X5UNITS SQ SCH (10:40)
[2017-07-12 10:55] VITALS: BP 142/92
== END 2017-07-12 15:35 | disposition home or self-care (01) ==
LOC: 3NENU 16:56 → EMEROO 16:56 → 3NENU 21:44
PROVIDERS: ADMIT Internal Medicine; ATTEND Internal Medicine

== ENCOUNTER 2019-02-04 19:37 | Observation (INO) ==
[2019-02-04] MEDS ORDERED: Ondansetron 4 MG/2 ML VIAL IVP ONE ×2 (20:05→21:45)
[2019-02-04] MEDS ORDERED: 0.9 % Sodium Chloride 1,000 ML IVC ONE (20:05)
--- NOTE | 2019-02-04 20:30 | Emergency Department Note ---
Disposition Clinical Impression: Dehydration Nausea & vomiting Qualifiers: Vomiting type: unspecified Vomiting Intractability: intractable Qualified Code(s): R11.2 - Nausea with vomiting, unspecified Disposition: Still a Patient Referrals: NONE,PCP [Primary Care Provider] - Time of Disposition: 20:32 General Adult HPI - General Chief complaint: ED General Medical Stated complaint: Dehydration/Vomiting/Back Pain Time Seen by Provider: 02/04/19 19:51 Source: patient Limitations: no limitations Nursing Notes Reviewed: Yes Vital Signs Reviewed: Yes - History of Present Illness HPI Narrative: Attestation note: Patient was seen with the emergency medicine resident/nurse practitioner/physician farm assistant/transitional resident/medical student: Dr. YUKO STOCK. This includes well any procedures performed for this significant portion thereof which are to include EKG and bedside ultrasound I have personally performed a face to face evaluation on this patient. I have reviewed and agree with history and physical examination patient management and disposition. Briefly the salient points of the case are as follows: 38-year-old male development delayed history spina bifida hypertension and zih-[id number]-dacrswrdu diabetes presents with his mother for nausea vomiting and dehydration. Patient has felt this way for the past day no fevers chills or contacts exotic recent travel or medication changes no dysuria one loose stool yesterday patient also states that "he sweats a lot". The power is out of the house and he has been Overheated. Denies headache photophobia or chest pain or shortness of breath. Patient is slightly dry oral mucosa abdomen surgically benign chest clear no pedal edema neurologically nonfocal patient getting liter normal saline screening labs UA anti-medics. Disposition pending Pain Scale: 10 - Related Data Home Medications Medication Instructions Recorded Confirmed Atorvastatin [Lipitor] 10 mg PO HS 03/24/15 06/01/18 Ergocalciferol (VITAMIN D2) 50,000 unit PO MO 03/24/15 06/01/18 [Drisdol (50,000 Unit)] Sitagliptin Phosphate [Januvia] 100 mg PO DAILY 07/10/17 06/01/18 Insulin Glargine [Lantus] 18 - 20 unit SQ QAM 06/01/18 06/01/18 Tizanidine HCl [Zanaflex] 4 mg PO TID 06/01/18 06/01/18 Previous Rx's Medication Instructions Recorded Lisinopril [Zestril] 10 mg PO DAILY 30 Days 01/31/16 Ibuprofen [Motrin] 600 mg PO Q8HR PRN #20 tab 04/29/16 Clindamycin [Cleocin] 150 mg PO Q6HR #7 capsule 06/01/18 Allergies Allergy/AdvReac Type Severity Reaction Status Date / Time aspirin Allergy See Verified 02/04/19 19:39 Comments ibuprofen Allergy due to Verified 02/04/19 19:39 kidneys naproxen [From Aleve] Allergy See Verified 02/04/19 19:39 Comments Past Medical History - Past Medical History Medical history: Reports: diabetes, GERD, hypertension, osteoporosis, renal disease, other Surgical history: Reports: cholecystectomy, other Psychiatric history: Reports: ADHD - Social History Smoking Status: Never smoker Smokeless Tobacco Status: No Alcohol use: Reports: none Drug use: Reports: none Physical Exam - General Limitations: no limitations General appearance: alert Course Vital Signs Temperature 98.2 F 02/04/19 19:39 Pulse Rate 117 02/04/19 19:39 Respiratory Rate 16 02/04/19 19:39 Blood Pressure 112/76 02/04/19 19:39 O2 Sat by Pulse Oximetry 97 02/04/19 19:39 Temperature 98.2 F 02/04/19 19:39 Pulse Rate 117 02/04/19 19:39 Respiratory Rate 16 02/04/19 19:39 Blood Pressure 112/76 02/04/19 19:39 O2 Sat by Pulse Oximetry 97 02/04/19 19:39 Oxygen Delivery Oxygen Delivery Room Air
[2019-02-04 21:08] LABS: Basophils # 0.1 K/mcL (0.0-0.2); Basophils % 0.4 %; Eosinophils # 0.1 K/mcL (0.0-0.6); Eosinophils % 0.8 %; Hematocrit 46.9 % (37.5-50.1); Hemoglobin 16.5 g/dL (12.9-16.9); Immature Granulocytes % 0.8 % (0-4); Lymphocytes # 2.4 K/mcL (0.6-4.6); Mean Corpuscular HGB Conc 35.2 g/dL (31.6-35.5); Mean Corpuscular Hemoglobin 29.6 pg (28.0-33.3); Mean Corpuscular Volume 84.1 fL (83.0-100.0); Mean Platelet Volume 10.6 fL (9.4-12.4); Monocytes # 1.3 K/mcL (0.0-1.3); Monocytes % 7.8 %; Neutrophils # 12.2 K/mcL (1.6-8.9); Platelet Count 302 K/mcL (140-400); Red Blood Count 5.58 M/mcL (4.19-5.50); Red Cell Distribution Width 12.5 % (11.5-14.5); Segmented Neutrophils % 75.2 %; White Blood Count 16.2 K/mcL (4.3-11.1)
[2019-02-04 21:18] LABS: Calcium 10.2 mg/dL (8.6-10.3); Potassium 4.3 mEq/L (3.5-5.1)
[2019-02-04 21:38] LABS: Bilirubin,Urine Small (Negative); Blood,Urine Negative (Negative); Clarity,Urine Cloudy (Clear); Color,Urine Dark Yellow (Yellow); Glucose,Urine (UA) Normal (Normal); Ketones,Urine Trace mg/dL (Negative); Leukocyte Esterase,Urine Negative (Negative); Nitrite,Urine Negative (Negative); Protein,Urine 30 mg/dL (Neg-Trace); Specific Gravity,Urine 1.024 (1.010-1.025); Urobilinogen,Urine Normal (Normal)
[2019-02-04 21:40] LABS: Bacteria,Urine None Seen per hpf (None-Few); RBC,Urine 15-30 per hpf (0-3); Squamous Epithelial Cell,Urine Many per lpf (None-Few)
[2019-02-04] MEDS ORDERED: 0.9 % Sodium Chloride 1,000 ML IV ONE (21:40)
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
[2019-02-04 21:56] LABS: Hyaline Casts,Urine Many per lpf (None-Few)
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
[2019-02-04] MEDS ORDERED: *HR* HYDROcodone/Acet 5/325 mg TABLET PO PRN (22:00)
[2019-02-04] MEDS ORDERED: Acetaminophen 325 MG TABLET PO PRN (22:00)
[2019-02-04] MEDS ORDERED: Naloxone 0.4 MG/ML INJ IVP PRN (22:00)
[2019-02-04] MEDS: 0.9 % Sodium Chloride 1,000 ML IVC SCH (22:40)
[2019-02-05 04:45] LABS: Basophils # 0.1 K/mcL (0.0-0.2); Basophils % 0.6 %; Eosinophils # 0.3 K/mcL (0.0-0.6); Hematocrit 43.8 % (37.5-50.1); Hemoglobin 14.6 g/dL (12.9-16.9); Immature Granulocytes % 0.8 % (0-4); Lymphocytes # 2.8 K/mcL (0.6-4.6); Lymphocytes % 22.5 %; Mean Corpuscular HGB Conc 33.3 g/dL (31.6-35.5); Mean Corpuscular Hemoglobin 28.8 pg (28.0-33.3); Mean Corpuscular Volume 86.4 fL (83.0-100.0); Mean Platelet Volume 10.6 fL (9.4-12.4); Monocytes # 1.1 K/mcL (0.0-1.3); Monocytes % 8.9 %; Neutrophils # 8.1 K/mcL (1.6-8.9); Platelet Count 234 K/mcL (140-400); Red Blood Count 5.07 M/mcL (4.19-5.50); Red Cell Distribution Width 12.8 % (11.5-14.5); Segmented Neutrophils % 65.2 %; White Blood Count 12.4 K/mcL (4.3-11.1)
[2019-02-05 04:51] LABS: INR 1.1; Prothrombin Time 12.4 Seconds (9.4-12.1)
[2019-02-05 04:54] LABS: Activated Partial Thrombo Time 29.2 Seconds (26.0-36.0)
[2019-02-05 05:01] LABS: Alanine Aminotransferase 14 Units/L (7-52); Albumin 3.7 g/dL (3.5-5.7); Albumin/Globulin Ratio 1.7 (1.1-2.2); Alkaline Phosphatase 69 Units/L (34-104); Aspartate Amino Transferase 10 Units/L (13-39); BUN/Creatinine Ratio 14 (6-26); Bilirubin,Total 0.5 mg/dL (0.3-1.0); Blood Urea Nitrogen 22 mg/dL (6-20); Calcium 8.9 mg/dL (8.6-10.3); Carbon Dioxide 23 mEq/L (23-29); Chloride 103 mEq/L (98-107); Chol/HDL Ratio 6.4 (0-4.9); Cholesterol 128 mg/dL (< 200); Globulin 2.2 g/dL (2.4-3.5); Glucose 149 mg/dL (70-105); HDL Cholesterol 20 mg/dL (40-59); LDL Cholesterol,Calculated 29 mg/dL (0-99); Magnesium 1.5 mg/dL (1.6-2.6); Osmolality,Calculated 290 (280-300); Phosphorous 3.3 mg/dL (2.7-4.5); Potassium 3.8 mEq/L (3.5-5.1); Sodium 137 mEq/L (136-145); Total Protein 5.9 g/dL (6.4-8.9); Triglycerides 397 mg/dL (< 150); eGFR For African Americans > 60 (> 60); eGFR For Non-African Americans 52 (> 60)
[2019-02-05] MEDS ORDERED: *HR* Dextrose 50 % in Water (Syg) 50 ML SYRINGE IVP PRN (05:59)
[2019-02-05] MEDS ORDERED: D5% in Water 1,000 ML IVC PRN (05:59)
[2019-02-05] MEDS ORDERED: Dextrose Gel 15 GM/37.5 ML TUBE PO PRN ×2 (05:59)
[2019-02-05] MEDS ORDERED: Ergocalciferol (VIT D2) 50,000 UNIT (1.25MG) CAP PO SCH (06:00)
[2019-02-05] MEDS: 0.9 % Sodium Chloride 1,000 ML IVC SCH ×3 (07:25→15:44)
[2019-02-05] MEDS: Insulin LISPRO 300 UNITS/3 ML VIAL SQ SCH ×3 (07:53→17:20)
[2019-02-05 08:32] LABS: Estimated Average Glucose 220 mg/dl
[2019-02-05] MEDS ORDERED: 0.9 % Sodium Chloride 1,000 ML IVC SCH (09:14)
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
[2019-02-05] MEDS ORDERED: Insulin LISPRO 300 UNITS/3 ML VIAL SQ SCH (21:00)
[2019-02-06] MEDS: 0.9 % Sodium Chloride 1,000 ML IVC SCH (01:25)
[2019-02-06 06:02] LABS: BUN/Creatinine Ratio 14 (6-26); Blood Urea Nitrogen 17 mg/dL (6-20); Calcium 8.9 mg/dL (8.6-10.3); Carbon Dioxide 23 mEq/L (23-29); Chloride 104 mEq/L (98-107); Glucose 202 mg/dL (70-105); Magnesium 1.4 mg/dL (1.6-2.6); Osmolality,Calculated 289 (280-300); Potassium 4.1 mEq/L (3.5-5.1); Sodium 136 mEq/L (136-145); eGFR For African Americans > 60 (> 60); eGFR For Non-African Americans > 60 (> 60)
[2019-02-06] MEDS: Magnesium Oxide 400 MG TABLET PO SCH ×2 (06:18→08:59)
[2019-02-06 07:12] VITALS: BP 114/75
[2019-02-06] MEDS: Insulin LISPRO 300 UNITS/3 ML VIAL SQ SCH (08:59)
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
== END 2019-02-06 12:06 | disposition home or self-care (01) ==
LOC: EMEROOARM 19:37 → 3BNU 19:37 → SUATTDRO 22:17 → 3BNU 22:28
PROVIDERS: ADMIT Internal Medicine Nephrology; ATTEND Family Medicine